=== PATIENT | female | born 1980 | race Caucasian/White ===

== ENCOUNTER → 2020-11-02 | Outpatient (CLI) | payer BC ==
--- NOTE | 2020-11-02 14:11 | RAD ---
US ABDOMEN COMPLETE: 11/02/2020 8:57 AM Indication: 40 years old Female. Upper abdominal pain Comparison: None. TECHNIQUE: Sonographic evaluation of the abdomen is performed utilizing grayscale and color Doppler. FINDINGS: Liver: Homogenous normal echotexture.. There is hepatopedal flow within the portal venous system. Rig ht hepatic lobe measures 16.6 cm. Biliary system: CBD measures 2.7 mm. There is no intrahepatic or extrahepatic biliary dilatation. Gallbladder: No stones, wall thickening or pericholecystic fluid. . Sonographic De La Vega sign: Negative Pancreas: Visualized head and uncinate process are unremarkable. Body and tail are not visualized. Spleen: 8.8 cm. Right kidney: 11.4 x 4.2 x 4.0 cm. No hydronephrosis. Normal echotexture without focal mass or renal calculus. Left kidney: 10.8 x 4.8 x 4.8 cm. No hydronephrosis. Normal echotexture without focal mass or renal c alculus. Abdominal aorta and IVC: Visualized portions unremarkable. Proximal aorta measures 1.8 cm. Mid aorta measures 1.8 cm distal aorta measures 1.17. Free fluid:None. IMPRESSION: No suspicious sonographic abnormality is identified. Electronically signed by: Zenaida Witt MD (11/02/2020 2:09 PM) [id number]
--- NOTE | 2020-11-02 14:20 | RAD ---
US THYROID: 11/02/2020 9:51 AM Indication: 40 years old Female. Reason: ENLARGED THYROID / Spl. Instructions: / History: . Comparison: None. TECHNIQUE: Sonographic evaluation of the thyroid gland was performed utilizing grayscale and color Do ppler imaging. FINDINGS: Right lobe: Normal in morphology with mild heterogeneity of echotexture without significant hyperemia . Size: 4.3 x 1.5 x 1.8 cm Nodules: Left lobe: Normal in morphology with mild heterogeneity of the echotexture without significant hypere corby. Size: 3.9 x 1.5 x 1.2 cm Nodules: Isthmus: Unremarkable. IMPRESSION: 1. Mild heterogeneity of echotexture without suspicious thyroid nodule. Electronically signed by: Zenaida Witt MD (11/02/2020 2:17 PM) [id number]
== END ==
LOC: US 08:51
PROVIDERS: ATTEND Nurse Practitioner Gerontology
DX: E07.89 Other specified disorders of thyroid (principal); R10.10 Upper abdominal pain, unspecified; E04.9 Nontoxic goiter, unspecified
CPT/HCPCS: 76536; 76700